=== PATIENT | male | born 1955 | race Hispanic/Latino ===

== ENCOUNTER → 2022-05-26 | Day surgery (SDC) | payer OTHER ==
[2022-05-24 14:53] LABS: BASOPHILS # (AUTO) 0.1 (0.0-0.1); BASOPHILS % 0.9 % (0.0-1.0); EOSINOPHILS # (AUTO) 0.1 (0.0-0.4); EOSINOPHILS % 1.9 % (0.0-6.0); HEMATOCRIT 51.4 % (38.2-49.6); HEMOGLOBIN 16.4 g/dL (14.0-18.0); LYMPHOCYTES # (AUTO) 0.8 (1.0-3.2); LYMPHOCYTES % 10.8 % (18.0-39.1); MEAN CORPUSCULAR HEMOGLOBIN 27.1 pg (28-32); MEAN CORPUSCULAR HGB CONC 31.9 g/dL (31-35); MEAN CORPUSCULAR VOLUME 84.8 fL (81-99); MONOCYTES # (AUTO) 0.5 (0.2-0.8); MONOCYTES % 6.8 % (4.4-11.3); NEUTROPHILS # (AUTO) 5.6 (2.1-6.9); NEUTROPHILS % 79.2 % (38.7-80.0); PLATELET COUNT 188 x10e3/uL (140-360); RED BLOOD COUNT 6.06 x10e6/uL (4.3-5.7); RED CELL DISTRIBUTION WIDTH 15.2 % (11.7-14.4)
[~2022-05-26] MED LIST: ASPIRIN81 MG PO; ATORVASTATIN CA10 MG PO; C-500500 MG PO; FINASTERIDE5 MG PO; FUROSEMIDE20 MG PO; LIDOCAINE HCL 2% LOCAL INJ 5 ML SDV VIAL INJ ONE; LINZESS72 MCG PO; METOPROLOL SUCC25 MG PO; MIDAZOLAM HCL 2 MG/2 ML VIAL ONE; MIRTAZAPINE15 MG PO; NEURONTIN300 MG PO; OMEPRAZOLE40 MG PO; PROPOFOL IV EMULSION 10 MG/ML 20 ML VIAL ONE; QUETIAPINE FUMA25 MG PO; ROPINIROLE HCL3 MG PO; TRULANCE3 MG PO; VITAMIN B1 PO; VITAMIN D310 MCG PO; WARFARIN SODIUM3 MG PO; XIFAXAN550 MG PO; ZETIA10 MG PO; ZOLPIDEM TARTRAT5 MG PO
[2022-05-26 07:27] LABS: INR 1.03; PROTHROMBIN TIME 14.4 seconds (11.9-14.5)
[2022-05-26 07:28] LABS: PARTIAL THROMBOPLASTIN TIME 29.7 seconds (23.8-35.5)
[2022-05-26 11:00] VITALS: BP 101/78
== END | disposition home or self-care (01) ==
LOC: OR 07:18
PROVIDERS: ATTEND Internal Medicine Gastroenterology
DX: K29.50 Unspecified chronic gastritis without bleeding (principal); K62.1 Rectal polyp; K57.30 Diverticulosis of large intestine without perforation or abscess without bleeding; K21.9 Gastro-esophageal reflux disease without esophagitis; K74.69 Other cirrhosis of liver; K64.8 Other hemorrhoids; G47.33 Obstructive sleep apnea (adult) (pediatric); K85.90 Acute pancreatitis without necrosis or infection, unspecified; I10 Essential (primary) hypertension; I48.91 Unspecified atrial fibrillation; Z01.810 Encounter for preprocedural cardiovascular examination; Z01.812 Encounter for preprocedural laboratory examination; Z79.01 Long term (current) use of anticoagulants; Z79.82 Long term (current) use of aspirin; Z79.899 Other long term (current) drug therapy
CPT/HCPCS: 36415; 43239; 45378; 85025; 85610; 85730; 88305; 88312; 88342; 93005; J2001; J2250

== ENCOUNTER 2023-01-04 12:58 | Inpatient (IN) | payer MEDICARE ==
[~2023-01-04] VITALS: Ht 170.2 cm; Wt 68.9 kg
[~2023-01-04 12:58] MED LIST changes: -LIDOCAINE HCL 2% LOCAL INJ 5 ML SDV VIAL INJ ONE; -MIDAZOLAM HCL 2 MG/2 ML VIAL ONE; -PROPOFOL IV EMULSION 10 MG/ML 20 ML VIAL ONE
[2023-01-04 14:13] LABS: BASOPHILS # (AUTO) 0.1 (0.0-0.1); BASOPHILS % 0.6 % (0.0-1.0); EOSINOPHILS # (AUTO) 0.2 (0.0-0.4); EOSINOPHILS % 1.8 % (0.0-6.0); HEMATOCRIT 47.9 % (38.2-49.6); HEMOGLOBIN 15.8 g/dL (14.0-18.0); LYMPHOCYTES # (AUTO) 0.7 (1.0-3.2); LYMPHOCYTES % 8.5 % (18.0-39.1); MEAN CORPUSCULAR HEMOGLOBIN 27.1 pg (28-32); MEAN CORPUSCULAR VOLUME 82.2 fL (81-99); MONOCYTES # (AUTO) 0.5 (0.2-0.8); MONOCYTES % 5.9 % (4.4-11.3); NEUTROPHILS # (AUTO) 6.7 (2.1-6.9); NEUTROPHILS % 82.2 % (38.7-80.0); PLATELET COUNT 242 x10e3/uL (140-360); RED BLOOD COUNT 5.83 x10e6/uL (4.3-5.7); RED CELL DISTRIBUTION WIDTH 16.1 % (11.7-14.4)
[2023-01-04 14:21] LABS: INR 2.37; PARTIAL THROMBOPLASTIN TIME 39.1 seconds (23.8-35.5); PROTHROMBIN TIME 27.2 seconds (11.9-14.5)
[2023-01-04 14:26] LABS: ALBUMIN 2.1 g/dL (3.5-5.0); ALBUMIN/GLOBULIN RATIO 0.8 (0.8-2.0); ANION GAP 13.2 mmol/L (8-16); CALCIUM 7.8 mg/dL (8.4-10.2); CREATININE, SERUM 1.37 mg/dL (0.72-1.25); POTASSIUM 4.2 mmol/L (3.5-5.1)
[2023-01-04] MEDS ORDERED: SODIUM CHLORIDE 0.9% 500ML 500 ML IV ONE (14:45)
[2023-01-04] MEDS ORDERED: IOPAMIDOL 370 MG/ML 100 ML INFUS..BTL INJ ONE (14:46)
[2023-01-04] MEDS ORDERED: FLOMAX0.4 MG PO (16:18)
[2023-01-04] MEDS ORDERED: AMIODARONE HCL100 MG PO (16:18)
[2023-01-04] MEDS ORDERED: XARELTO20 MG PO (16:18)
[2023-01-04] MEDS ORDERED: LACTULOSE20 GM/30 M PO (16:18)
[2023-01-04] MEDS ORDERED: SODIUM CHLORIDE FLUSH 10 ML SYR INJ PRN (16:45)
[2023-01-04] MEDS ORDERED: Morphine 4mg INJECTION 4 MG/ML INJ IV PRN (16:45)
[2023-01-04] MEDS ORDERED: ONDANSETRON HCL INJ 2MG/ML 2ML 2 MG/ML VIAL IV PRN (16:45)
[2023-01-04 20:00] VITALS: BP 104/72; PULSE 58; RESP 18; TEMP 96; O2SAT 93
[2023-01-04 22:06] VITALS: BP 104/72; PULSE 58; RESP 18; TEMP 96; O2SAT 93
[2023-01-04 22:30] VITALS: BP 104/72; PULSE 58; RESP 18; TEMP 96; O2SAT 93
[2023-01-05] VITALS (8 sets, daily range): BP systolic 89–114; BP diastolic 60–71; PULSE 56–102; RESP 15–18; TEMP 97.4–98.5; O2SAT 94–100
[2023-01-05] MEDS: ZOLPIDEM TARTRATE 5 MG TAB PO PRN ×2 (03:30→21:29)
[2023-01-05] MEDS: ROPINIROLE HCL 1 MG TAB PO SCH (03:31)
[2023-01-05] MEDS: GABAPENTIN 300 MG CAP PO SCH ×3 (03:31→21:41)
[2023-01-05 06:18] LABS: BASOPHILS # (AUTO) 0.1 (0.0-0.1); BASOPHILS % 0.7 % (0.0-1.0); EOSINOPHILS # (AUTO) 0.3 (0.0-0.4); EOSINOPHILS % 3.9 % (0.0-6.0); HEMATOCRIT 44.1 % (38.2-49.6); HEMOGLOBIN 14.5 g/dL (14.0-18.0); LYMPHOCYTES # (AUTO) 0.9 (1.0-3.2); MEAN CORPUSCULAR HGB CONC 32.9 g/dL (31-35); MONOCYTES # (AUTO) 0.5 (0.2-0.8); MONOCYTES % 7.5 % (4.4-11.3); PLATELET COUNT 205 x10e3/uL (140-360); RED BLOOD COUNT 5.38 x10e6/uL (4.3-5.7); RED CELL DISTRIBUTION WIDTH 15.3 % (11.7-14.4)
[2023-01-05 06:42] LABS: ANION GAP 10.7 mmol/L (8-16); CALCIUM 7.7 mg/dL (8.4-10.2); POTASSIUM 3.7 mmol/L (3.5-5.1)
[2023-01-05] MEDS ORDERED: MELATONIN 3 MG TAB PO PRN (08:45)
[2023-01-05] MEDS ORDERED: SIMETHICONE 80 MG CHEW PO PRN (08:45)
[2023-01-05] MEDS: FUROSEMIDE INJ 10 MG/ML 2 ML VIAL IV SCH ×3 (09:45→21:41)
[2023-01-05] MEDS: MIDODRINE HCL 5 MG TABLET PO SCH ×3 (09:45→22:00)
[2023-01-05] MEDS: DOCUSATE SODIUM 100 MG CAP PO PRN (14:28)
[2023-01-05] MEDS ORDERED: RIVAROXABAN 20 MG TABLET PO SCH (17:00)
[2023-01-05] MEDS ORDERED: ROPINIROLE HCL 2 MG TAB PO SCH (21:00)
[2023-01-05] MEDS ORDERED: EZETIMIBE 10 MG TAB PO SCH (21:00)
[2023-01-05] MEDS ORDERED: ATORVASTATIN 10 MG TAB PO SCH (21:00)
[2023-01-05] MEDS ORDERED: MIRTAZAPINE 15 MG TAB PO SCH (21:00)
[2023-01-05] MEDS ORDERED: QUETIAPINE FUMARATE 25 MG TAB PO SCH (21:00)
[2023-01-06] VITALS: BP 115/69; PULSE 66; RESP 16; TEMP 98.4; O2SAT 97
[2023-01-06 04:00] VITALS: BP 106/70; PULSE 72; RESP 18; TEMP 97.7; O2SAT 96
[2023-01-06] MEDS: FUROSEMIDE INJ 10 MG/ML 2 ML VIAL IV SCH (05:25)
[2023-01-06] MEDS: MIDODRINE HCL 5 MG TABLET PO SCH (05:25)
[2023-01-06 06:07] LABS: BASOPHILS # (AUTO) 0.1 (0.0-0.1); BASOPHILS % 0.8 % (0.0-1.0); EOSINOPHILS # (AUTO) 0.4 (0.0-0.4); EOSINOPHILS % 4.9 % (0.0-6.0); HEMOGLOBIN 15.6 g/dL (14.0-18.0); LYMPHOCYTES # (AUTO) 0.9 (1.0-3.2); MEAN CORPUSCULAR HEMOGLOBIN 26.8 pg (28-32); MEAN CORPUSCULAR HGB CONC 32.5 g/dL (31-35); MEAN CORPUSCULAR VOLUME 82.3 fL (81-99); MONOCYTES # (AUTO) 0.6 (0.2-0.8); MONOCYTES % 7.6 % (4.4-11.3); NEUTROPHILS # (AUTO) 5.5 (2.1-6.9); NEUTROPHILS % 73.8 % (38.7-80.0); PLATELET COUNT 233 x10e3/uL (140-360); RED BLOOD COUNT 5.83 x10e6/uL (4.3-5.7); RED CELL DISTRIBUTION WIDTH 16.2 % (11.7-14.4)
[2023-01-06 06:44] LABS: ANION GAP 11.7 mmol/L (8-16); CALCIUM 7.8 mg/dL (8.4-10.2); CREATININE, SERUM 1.03 mg/dL (0.72-1.25); POTASSIUM 3.7 mmol/L (3.5-5.1)
[2023-01-06 07:51] LABS: MAGNESIUM 1.9 MG/DL (1.3-2.1); PHOSPHORUS 3.8 MG/DL (2.3-4.7)
[2023-01-06 08:00] VITALS: BP 110/75; PULSE 56; RESP 18; TEMP 97.7; O2SAT 100
[2023-01-06 09:20] VITALS: BP 110/75; PULSE 56; RESP 18; TEMP 97.7; O2SAT 100
[2023-01-06] MEDS: GABAPENTIN 300 MG CAP PO SCH (09:46)
[2023-01-06] MEDS: DOCUSATE SODIUM 100 MG CAP PO PRN (09:46)
[2023-01-06] MEDS: ROPINIROLE HCL 1 MG TAB PO SCH (09:46)
[2023-01-06] MEDS ORDERED: ONDANSETRON HCL 4 MG ORAL DISINTEGRATING TAB PO PRN (11:30)
[2023-01-06 11:48] VITALS: BP 105/63; PULSE 60; RESP 18; TEMP 97.7; O2SAT 97
[2023-01-06] MEDS ORDERED: POLYETHYLENE GLYCOL 3350 17 GM PACK PO SCH (13:00)
== END 2023-01-06 12:54 | disposition home or self-care (01) | DRG 432 ==
LOC: ER 13:19 → ERHOLD 16:47 → MED/SURG3 18:38
PROVIDERS: ADMIT Internal Medicine; ATTEND Internal Medicine
DX: K74.60 Unspecified cirrhosis of liver (principal); I50.33 Acute on chronic diastolic (congestive) heart failure; J90 Pleural effusion, not elsewhere classified; I31.1 Chronic constrictive pericarditis; J98.11 Atelectasis; R18.8 Other ascites; I11.0 Hypertensive heart disease with heart failure; I48.0 Paroxysmal atrial fibrillation; K59.09 Other constipation; K57.90 Diverticulosis of intestine, part unspecified, without perforation or abscess without bleeding; E78.00 Pure hypercholesterolemia, unspecified; K40.20 Bilateral inguinal hernia, without obstruction or gangrene, not specified as recurrent; E11.9 Type 2 diabetes mellitus without complications; Z79.01 Long term (current) use of anticoagulants; Z20.822 Contact with and (suspected) exposure to COVID-19; Z59.6 Low income; Z79.82 Long term (current) use of aspirin; Z86.73 Personal history of transient ischemic attack (TIA), and cerebral infarction without residual deficits
CPT/HCPCS: 0223U; 36415; 71045; 71046; 74177; 80048; 80053; 82550; 83690; 83735; 83880; 84100; 84484; 85025; 85610; 85730; 93005; 93306; 96361; 99284; J1940; J7040; Q9967

== ENCOUNTER 2023-04-18 13:44 | Inpatient (IN) | payer MEDICARE, OTHER ==
[~2023-04-18] VITALS: Ht 170.2 cm; Wt 68.9 kg
[~2023-04-18 13:44] MED LIST changes: +AMIODARONE HCL100 MG PO; +FLOMAX0.4 MG PO; +LACTULOSE20 GM/30 M PO; +XARELTO20 MG PO
[2023-04-18] MEDS ORDERED: OCTREOTIDE ACETATE 0.05 MG/ML AMP IV STA (14:46)
[2023-04-18 15:03] LABS: BASOPHILS # (AUTO) 0.1 (0.0-0.1); BASOPHILS % 0.7 % (0.0-1.0); EOSINOPHILS # (AUTO) 0.2 (0.0-0.4); EOSINOPHILS % 3.2 % (0.0-6.0); HEMOGLOBIN 11.3 g/dL (14.0-18.0); LYMPHOCYTES # (AUTO) 0.6 (1.0-3.2); LYMPHOCYTES % 8.1 % (18.0-39.1); MEAN CORPUSCULAR HEMOGLOBIN 25.8 pg (28-32); MEAN CORPUSCULAR HGB CONC 32.3 g/dL (31-35); MEAN CORPUSCULAR VOLUME 79.9 fL (81-99); MONOCYTES # (AUTO) 0.5 (0.2-0.8); MONOCYTES % 7.5 % (4.4-11.3); NEUTROPHILS # (AUTO) 5.4 (2.1-6.9); NEUTROPHILS % 78.3 % (38.7-80.0); PLATELET COUNT 234 x10e3/uL (140-360); RED BLOOD COUNT 4.38 x10e6/uL (4.3-5.7); WHITE BLOOD COUNT 6.89 x10e3/uL (4.8-10.8)
[2023-04-18 15:08] LABS: INR 2.87; PROTHROMBIN TIME 31.9 seconds (11.9-14.5)
[2023-04-18 15:09] LABS: PARTIAL THROMBOPLASTIN TIME 42.2 seconds (23.8-35.5)
[2023-04-18 15:17] LABS: ALANINE AMINOTRANSFERASE 15 IU/L (0-55); ALBUMIN 2.2 g/dL (3.5-5.0); ALKALINE PHOSPHATASE 56 IU/L (40-150); ANION GAP 10.4 mmol/L (8-16); BLOOD UREA NITROGEN 93 mg/dL (7-26); BUN/CREATININE RATIO 38 (6-25); CALCIUM 8.1 mg/dL (8.4-10.2); CARBON DIOXIDE 22 mmol/L (22-29); CHLORIDE 106 mmol/L (98-107); CREATINE KINASE 60 IU/L (30-200); CREATININE, SERUM 2.48 mg/dL (0.72-1.25); GLUCOSE 112 mg/dL (74-118); POTASSIUM 5.4 mmol/L (3.5-5.1); SODIUM 133 mmol/L (136-145)
[2023-04-18] MEDS: OCTREOTIDE ACETATE 500 MCG in SODIUM CHLORIDE 0.9% 250ML 249 ML IV SCH (15:34)
[2023-04-18] MEDS ORDERED: LIDOCAINE JELLY 2% 10ML URO-JET TOP ONE (16:30)
[2023-04-18 17:04] LABS: CLARITY,URINE CLEAR (CLEAR); COLOR,URINE YELLOW (YELLOW); KETONES,URINE NEGATIVE (NEGATIVE); LEUKOCYTE ESTERASE ,URINE NEGATIVE (NEGATIVE); NITRITE,URINE NEGATIVE (NEGATIVE); PROTEIN,URINE DIPSTICK NEGATIVE (NEGATIVE); URINE UROBILINOGEN 0.2 mg/dL (0.2 - 1)
[2023-04-18 17:10] LABS: WBC,URINE (MAN) 0-5 /HPF (0-5)
[2023-04-18 17:11] LABS: BACTERIA,URINE FEW /HPF; EPITHELIAL CELLS,URINE FEW /LPF; RBC,URINE 0-5 /HPF (0-5)
[2023-04-18] MEDS ORDERED: SODIUM CHLORIDE 0.9% 500ML 500 ML ONE (17:23)
[2023-04-18] MEDS ORDERED: SODIUM CHLORIDE 0.9% 500ML 500 ML IV ONE (17:30)
[2023-04-18] MEDS ORDERED: PHYTONADIONE 10 MG/ML AMP SQ ONE ×2 (17:35→19:45)
[2023-04-18] MEDS: SODIUM CHLORIDE 0.9% 1000ML 1,000 ML IV SCH (18:27)
[2023-04-18 20:00] VITALS: BP 89/63; PULSE 85; RESP 18; TEMP 97.3; O2SAT 97
[2023-04-18 23:00] VITALS: BP 87/61; PULSE 79; RESP 18; TEMP 97.6; O2SAT 94
[2023-04-19] VITALS (7 sets, daily range): BP systolic 83–113; BP diastolic 60–71; PULSE 75–99; RESP 17–19; TEMP 97.7–98.1; O2SAT 96–100
[2023-04-19] MEDS: OCTREOTIDE ACETATE 500 MCG in SODIUM CHLORIDE 0.9% 250ML 249 ML IV SCH ×2 (00:45→11:09)
[2023-04-19 06:00] LABS: BASOPHILS # (AUTO) 0.1 (0.0-0.1); BASOPHILS % 0.9 % (0.0-1.0); EOSINOPHILS # (AUTO) 0.2 (0.0-0.4); EOSINOPHILS % 4.5 % (0.0-6.0); HEMATOCRIT 30.4 % (38.2-49.6); HEMOGLOBIN 10.1 g/dL (14.0-18.0); LYMPHOCYTES # (AUTO) 0.6 (1.0-3.2); LYMPHOCYTES % 11.1 % (18.0-39.1); MEAN CORPUSCULAR HEMOGLOBIN 27.3 pg (28-32); MEAN CORPUSCULAR HGB CONC 33.2 g/dL (31-35); MEAN CORPUSCULAR VOLUME 82.2 fL (81-99); MONOCYTES # (AUTO) 0.5 (0.2-0.8); MONOCYTES % 9.2 % (4.4-11.3); NEUTROPHILS # (AUTO) 3.8 (2.1-6.9); NEUTROPHILS % 72.4 % (38.7-80.0); PLATELET COUNT 173 x10e3/uL (140-360); RED CELL DISTRIBUTION WIDTH 19.7 % (11.7-14.4)
[2023-04-19 06:15] LABS: INR 2.14; PROTHROMBIN TIME 25.2 seconds (11.9-14.5)
[2023-04-19 06:45] LABS: ALBUMIN 2.5 g/dL (3.5-5.0); ANION GAP 12.5 mmol/L (8-16); POTASSIUM 4.5 mmol/L (3.5-5.1)
[2023-04-19] MEDS: SODIUM CHLORIDE 0.9% 1000ML 1,000 ML IV SCH (10:06)
[2023-04-19] MEDS ORDERED: LASIX10 MG/ML PO (12:28)
[2023-04-19] MEDS ORDERED: SPIRONOLACTONE25 MG PO (12:28)
[2023-04-19] MEDS ORDERED: ROPINIROLE HCL1 MG PO (12:28)
[2023-04-19] MEDS ORDERED: FUROSEMIDE40 MG PO ×2 (12:29)
[2023-04-19] MEDS ORDERED: folic acid (12:31)
[2023-04-19] MEDS ORDERED: HYDROXYZINE HCL10 MG PO (12:34)
[2023-04-19] MEDS: MIDODRINE HCL 5 MG TABLET PO SCH ×2 (12:38→18:04)
[2023-04-19 15:56] LABS: ANION GAP 12.8 mmol/L (8-16); CALCIUM 8.1 mg/dL (8.4-10.2); CREATININE, SERUM 1.79 mg/dL (0.72-1.25); POTASSIUM 4.8 mmol/L (3.5-5.1)
[2023-04-20] VITALS (8 sets, daily range): BP systolic 101–135; BP diastolic 66–90; PULSE 59–77; RESP 16–17; TEMP 97.6–98.1; O2SAT 94–99
[2023-04-20] MEDS: OCTREOTIDE ACETATE 500 MCG in SODIUM CHLORIDE 0.9% 250ML 249 ML IV SCH ×3 (00:31→17:48)
[2023-04-20 06:20] LABS: BASOPHILS % 0.6 % (0.0-1.0); EOSINOPHILS # (AUTO) 0.2 (0.0-0.4); EOSINOPHILS % 3.7 % (0.0-6.0); HEMATOCRIT 34.9 % (38.2-49.6); LYMPHOCYTES # (AUTO) 0.5 (1.0-3.2); LYMPHOCYTES % 8.4 % (18.0-39.1); MEAN CORPUSCULAR HEMOGLOBIN 25.7 pg (28-32); MEAN CORPUSCULAR HGB CONC 31.5 g/dL (31-35); MEAN CORPUSCULAR VOLUME 81.5 fL (81-99); MONOCYTES # (AUTO) 0.6 (0.2-0.8); MONOCYTES % 8.9 % (4.4-11.3); NEUTROPHILS # (AUTO) 4.7 (2.1-6.9); NEUTROPHILS % 76.9 % (38.7-80.0); PLATELET COUNT 226 x10e3/uL (140-360); RED BLOOD COUNT 4.28 x10e6/uL (4.3-5.7); RED CELL DISTRIBUTION WIDTH 18.9 % (11.7-14.4); WHITE BLOOD COUNT 6.16 x10e3/uL (4.8-10.8)
[2023-04-20 06:53] LABS: ALBUMIN 2.3 g/dL (3.5-5.0); ANION GAP 11.6 mmol/L (8-16); CALCIUM 8.2 mg/dL (8.4-10.2); CREATININE, SERUM 1.39 mg/dL (0.72-1.25); MAGNESIUM 2.4 MG/DL (1.3-2.1); PHOSPHORUS 3.3 MG/DL (2.3-4.7); POTASSIUM 4.6 mmol/L (3.5-5.1)
[2023-04-20 06:56] LABS: THYROID STIMULATING HORMONE 1.803 uIU/mL (0.350-4.940)
[2023-04-20 07:37] LABS: INR 1.33; PROTHROMBIN TIME 17.3 seconds (11.9-14.5)
[2023-04-20] MEDS: MIDODRINE HCL 5 MG TABLET PO SCH ×2 (11:39→17:48)
[2023-04-20] MEDS ORDERED: PROPOFOL IV EMULSION 10 MG/ML 20 ML VIAL ONE ×2 (12:43→14:08)
[2023-04-20] MEDS ORDERED: FENTANYL CITRATE/PF 100MCG/2 ML INJ ONE (12:43)
[2023-04-20] MEDS ORDERED: LIDOCAINE HCL 2% 2 ML AMP ONE (12:44)
[2023-04-20] MEDS ORDERED: LIDOCAINE HCL 2% LOCAL INJ 5 ML SDV VIAL INJ ONE (14:08)
[2023-04-20] MEDS ORDERED: ETOMIDATE 2 MG/ML 10 ML INJ IV ONE (14:08)
[2023-04-21] VITALS (9 sets, daily range): BP systolic 94–127; BP diastolic 56–86; PULSE 60–93; RESP 17–20; TEMP 97.5–98.2; O2SAT 92–98
[2023-04-21] MEDS: OCTREOTIDE ACETATE 500 MCG in SODIUM CHLORIDE 0.9% 250ML 249 ML IV SCH (04:31)
[2023-04-21] MEDS: MIDODRINE HCL 5 MG TABLET PO SCH ×3 (08:00→16:41)
[2023-04-21] MEDS ORDERED: RIVAROXABAN 20 MG TABLET PO SCH (09:00)
[2023-04-21] MEDS ORDERED: ASPIRIN 81 MG CHEW TAB PO SCH (09:00)
[2023-04-21] MEDS: VITAMIN B1 PO SCH (09:00)
[2023-04-21] MEDS: SPIRONOLACTONE 25 MG TAB PO SCH (09:25)
[2023-04-21] MEDS: METOPROLOL SUCCINATE 25 MG TAB XL PO SCH (09:26)
[2023-04-21] MEDS: LACTULOSE SYRUP 20 GM/30 ML UDC PO SCH (09:26)
[2023-04-21] MEDS: PANTOPRAZOLE SOD 40 MG TABEC PO SCH (09:26)
[2023-04-21] MEDS: FINASTERIDE 5 MG TAB PO SCH (09:26)
[2023-04-21] MEDS: TAMSULOSIN HCL 0.4 MG CAP PO SCH (09:26)
[2023-04-21] MEDS: RIFAXIMIN 550 MG TABLET PO SCH (09:27)
[2023-04-21] MEDS: EZETIMIBE 10 MG TAB PO SCH (09:27)
[2023-04-21] MEDS: GABAPENTIN 300 MG CAP PO SCH ×3 (09:27→21:59)
[2023-04-21] MEDS: AMIODARONE HCL 200 MG TAB PO SCH (09:27)
[2023-04-21] MEDS: HYDROXYZINE HCL 25 MG TAB PO SCH (09:28)
[2023-04-21] MEDS ORDERED: FUROSEMIDE INJ 10 MG/ML 4 ML VIAL IV SCH (17:00)
[2023-04-21] MEDS ORDERED: FUROSEMIDE 40 MG TAB PO SCH (17:00)
[2023-04-21] MEDS ORDERED: ZOLPIDEM TARTRATE 5 MG TAB PO SCH (21:00)
[2023-04-21] MEDS ORDERED: ROPINIROLE HCL 1 MG TAB PO SCH (21:00)
[2023-04-21] MEDS ORDERED: MIRTAZAPINE 15 MG TAB PO SCH (21:00)
[2023-04-21] MEDS ORDERED: ATORVASTATIN 10 MG TAB PO SCH (21:00)
[2023-04-22 00:54] VITALS: BP 109/79; PULSE 62; RESP 17; TEMP 98; O2SAT 97
[2023-04-22 04:00] VITALS: BP 104/66; PULSE 89; RESP 18; TEMP 97.8; O2SAT 95
[2023-04-22 07:56] LABS: ANION GAP 11.2 mmol/L (8-16); CALCIUM 7.7 mg/dL (8.4-10.2); CREATININE, SERUM 1.11 mg/dL (0.72-1.25); POTASSIUM 4.2 mmol/L (3.5-5.1)
[2023-04-22 08:39] VITALS: BP 100/74; PULSE 71; RESP 18; TEMP 97.5; O2SAT 92
[2023-04-22 08:50] VITALS: BP 100/74; PULSE 71; RESP 18; TEMP 97.5; O2SAT 92
[2023-04-22] MEDS: VITAMIN B1 PO SCH (09:00)
[2023-04-22] MEDS ORDERED: APIXAB 2.5 MG TABLET PO SCH (09:00)
[2023-04-22] MEDS ORDERED: FUROSEMIDE INJ 10 MG/ML 4 ML VIAL IV SCH (09:00)
[2023-04-22] MEDS: PANTOPRAZOLE SOD 40 MG TABEC PO SCH (09:00)
[2023-04-22] MEDS ORDERED: CHOLECALCIFEROL 50000 UNIT PO SCH (09:00)
[2023-04-22] MEDS: RIFAXIMIN 550 MG TABLET PO SCH (09:15)
[2023-04-22] MEDS: SPIRONOLACTONE 25 MG TAB PO SCH (09:16)
[2023-04-22] MEDS: MIDODRINE HCL 5 MG TABLET PO SCH ×2 (09:16→11:42)
[2023-04-22] MEDS: METOPROLOL SUCCINATE 25 MG TAB XL PO SCH (09:16)
[2023-04-22] MEDS: GABAPENTIN 300 MG CAP PO SCH (09:16)
[2023-04-22] MEDS: HYDROXYZINE HCL 25 MG TAB PO SCH (09:17)
[2023-04-22] MEDS: AMIODARONE HCL 200 MG TAB PO SCH (09:17)
[2023-04-22] MEDS: EZETIMIBE 10 MG TAB PO SCH (09:18)
[2023-04-22] MEDS: FINASTERIDE 5 MG TAB PO SCH (09:18)
[2023-04-22] MEDS: TAMSULOSIN HCL 0.4 MG CAP PO SCH (09:18)
[2023-04-22] MEDS: LACTULOSE SYRUP 20 GM/30 ML UDC PO SCH (09:20)
[2023-04-22 12:23] VITALS: BP 113/92; PULSE 80; RESP 18; TEMP 97.9; O2SAT 90
== END 2023-04-22 13:34 | disposition home health service (06) | DRG 377 ==
LOC: ER 14:28 → ERHOLD 16:42 → MED/SURG3 18:10
PROVIDERS: ADMIT Internal Medicine; ATTEND Internal Medicine
PROC: 30243K1 Transfusion of Nonautologous Frozen Plasma into Central Vein, Percutaneous Approach (ICD-10-PCS; 2023-04-18)
PROC: 0DJ08ZZ Inspection of Upper Intestinal Tract, Via Natural or Artificial Opening Endoscopic (ICD-10-PCS; principal; 2023-04-20 13:46)
DX: K62.5 Hemorrhage of anus and rectum (principal); I50.33 Acute on chronic diastolic (congestive) heart failure; N17.0 Acute kidney failure with tubular necrosis; D62 Acute posthemorrhagic anemia; R18.8 Other ascites; D68.32 Hemorrhagic disorder due to extrinsic circulating anticoagulants; K29.70 Gastritis, unspecified, without bleeding; T45.515A Adverse effect of anticoagulants, initial encounter; Y92.89 Other specified places as the place of occurrence of the external cause; K74.60 Unspecified cirrhosis of liver; E86.0 Dehydration; I11.0 Hypertensive heart disease with heart failure; K57.90 Diverticulosis of intestine, part unspecified, without perforation or abscess without bleeding; K40.90 Unilateral inguinal hernia, without obstruction or gangrene, not specified as recurrent; F41.9 Anxiety disorder, unspecified; E87.5 Hyperkalemia; N40.1 Benign prostatic hyperplasia with lower urinary tract symptoms; K59.09 Other constipation; R33.8 Other retention of urine; G47.00 Insomnia, unspecified; I48.0 Paroxysmal atrial fibrillation; E83.51 Hypocalcemia; M19.90 Unspecified osteoarthritis, unspecified site; R53.81 Other malaise; R53.1 Weakness; Z79.899 Other long term (current) drug therapy; Z79.82 Long term (current) use of aspirin; Z79.01 Long term (current) use of anticoagulants; Z86.73 Personal history of transient ischemic attack (TIA), and cerebral infarction without residual deficits; Z20.822 Contact with and (suspected) exposure to COVID-19
CPT/HCPCS: 36415; 43239; 51700; 74176; 76705; 80048; 80053; 81001; 82550; 82607; 83036; 83540; 83735; 84100; 84443; 84466; 84484; 85025; 85610; 85730; 86850; 86900; 87086; 93306; 94799; 96365; 96366; 99284; J1940; J2001; J2353; J2354; J3410; J3430; J7030; J7040; J7050; P9017; U0002

== ENCOUNTER 2023-11-05 12:37 | Emergency (ER) | payer MEDICARE ==
[~2023-11-05] VITALS: Ht 170.2 cm; Wt 71.2 kg
[~2023-11-05 12:37] MED LIST changes: +FUROSEMIDE40 MG PO; +HYDROXYZINE HCL10 MG PO; +LASIX10 MG/ML PO; +LEVOTHYROXINE75 MCG PO; +LINZESS290 MCG PO; +ROPINIROLE HCL1 MG PO; +SPIRONOLACTONE25 MG PO; +TROSPIUM CHLORI20 MG PO; +folic acid
[2023-11-05] MEDS ORDERED: SODIUM CHLORIDE FLUSH 10 ML SYR IV PRN (12:45)
[2023-11-05 13:20] LABS: BASOPHILS # (AUTO) 0.1 (0.0-0.1); BASOPHILS % 0.8 % (0.0-1.0); EOSINOPHILS # (AUTO) 0.2 (0.0-0.4); EOSINOPHILS % 2.5 % (0.0-6.0); HEMATOCRIT 45.5 % (38.2-49.6); HEMOGLOBIN 14.1 g/dL (14.0-18.0); LYMPHOCYTES # (AUTO) 0.6 (1.0-3.2); LYMPHOCYTES % 7.7 % (18.0-39.1); MEAN CORPUSCULAR HEMOGLOBIN 22.6 pg (28-32); MEAN CORPUSCULAR VOLUME 72.8 fL (81-99); MONOCYTES # (AUTO) 0.5 (0.2-0.8); MONOCYTES % 6.1 % (4.4-11.3); NEUTROPHILS # (AUTO) 6.3 (2.1-6.9); NEUTROPHILS % 82.6 % (38.7-80.0); PLATELET COUNT 245 x10e3/uL (140-360); RED BLOOD COUNT 6.25 x10e6/uL (4.3-5.7); RED CELL DISTRIBUTION WIDTH 20.9 % (11.7-14.4); WHITE BLOOD COUNT 7.65 x10e3/uL (4.8-10.8)
[2023-11-05 14:01] LABS: ALANINE AMINOTRANSFERASE 34 IU/L (0-55); ALBUMIN 2.2 g/dL (3.5-5.0); ALKALINE PHOSPHATASE 96 IU/L (40-150); ANION GAP 16.4 mmol/L (8-16); BILIRUBIN,TOTAL 0.7 mg/dL (0.2-1.2); BLOOD UREA NITROGEN 31 mg/dL (7-26); BUN/CREATININE RATIO 25 (6-25); CARBON DIOXIDE 24 mmol/L (22-29); CHLORIDE 97 mmol/L (98-107); CREATININE, SERUM 1.22 mg/dL (0.72-1.25); EST GLOMERULAR FILTRATION RATE 64 ML/MIN (>=60); GLUCOSE 114 mg/dL (74-118); POTASSIUM 4.4 mmol/L (3.5-5.1); SODIUM 133 mmol/L (136-145); TOTAL PROTEIN 4.4 g/dL (6.5-8.1)
[2023-11-05 14:10] LABS: TROPONIN I < 0.001 ng/mL (0-0.300)
[2023-11-05 16:42] VITALS: BP 111/97; PULSE 76; RESP 25; TEMP 97.8; O2SAT 98
== END 2023-11-05 16:52 | disposition short-term general hospital (02) ==
LOC: ER 12:43
DX: R06.02 Shortness of breath (principal); J90 Pleural effusion, not elsewhere classified; I10 Essential (primary) hypertension; I48.91 Unspecified atrial fibrillation; E78.5 Hyperlipidemia, unspecified; K76.9 Liver disease, unspecified; F41.9 Anxiety disorder, unspecified; Z11.52 Encounter for screening for COVID-19; R94.31 Abnormal electrocardiogram [ECG] [EKG]
CPT/HCPCS: 36415; 71045; 80053; 83880; 84484; 85025; 93005; 94760; 99284; U0002